=== PATIENT | male | born 1985 | race African-American/Black ===

== ENCOUNTER 2018-12-23 16:32 | Emergency (ER) | payer BC ==
[~2018-12-23] VITALS: Ht 162.6 cm; Wt 75.8 kg
[~2018-12-23 16:32] MED LIST: CIPROFLOXACIN500 M1 PO; CLOTRIMAZOLE 1%15 G1 TOP; KLOR-CON 1010 MEQ PO; LIPITOR 20 MG T20 M1 PO; NOHOMEMEDICATIONS; NORCO 5-325 TA1 EACH PO; XANAX 0.25 MG0.25 MG PO
[2018-12-23] MEDS ORDERED: IBUPROFEN 800800 M1 PO (17:01)
[2018-12-23] MEDS ORDERED: AMOXICILLIN 50500 MG PO (17:01)
[2018-12-23] MEDS ORDERED: NAPROSYN500 MG PO (18:51)
[2018-12-23 19:15] VITALS: BP 132/90
== END 2018-12-23 19:16 | disposition home or self-care (01) ==
LOC: ER 16:32
DX: R51 Headache (principal); K02.9 Dental caries, unspecified

== ENCOUNTER 2019-07-20 09:06 | Emergency (ER) | payer BC ==
[~2019-07-20] VITALS: Ht 162.6 cm; Wt 69.8 kg
[~2019-07-20 09:06] MED LIST changes: +AMOXICILLIN 50500 MG PO; +IBUPROFEN 800800 M1 PO; +NAPROSYN500 MG PO
[2019-07-20 10:50] LABS: URINE BILIRUBIN NEGATIVE (Negative); URINE BLOOD NEGATIVE (Negative); URINE CLARITY CLEAR; URINE COLOR YELLOW; URINE GLUCOSE-RANDOM* NEGATIVE (Negative); URINE KETONES NEGATIVE (Negative); URINE NITRITE-REFLEX NEGATIVE (Negative); URINE PROTEIN (DIPSTICK) NEGATIVE (Negative); URINE SPECIFIC GRAVITY <= 1.005 (1.005-1.035); URINE UROBILINOGEN 0.2 E.U./dl (0.2-1.0)
[2019-07-20 10:51] LABS: URINE LEUKOCYTES-REFLEX 2+ (Negative)
[2019-07-20 10:54] LABS: BACTERIA-REFLEX None Seen /HPF (None Seen); CRYSTALS None Seen /LPF (None Seen); SQUAMOUS None Seen /LPF (0-3); URINE RBC None Seen /HPF (0-2)
[2019-07-20 10:57] LABS: AMP/METHAMP Negative (Negative); BARBITURATES Negative (Negative); BENZODIAZEPINES Negative (Negative); COCAINE Negative (Negative); METHADONE Negative (Negative); OPIATES Negative (Negative); PCP Negative (Negative)
[2019-07-20 11:03] LABS: ABSOLUTE NEUTROPHILS 6.5 thou/uL (1.4-8.2); BASOPHILS 0.3 % (0.0-2.0); EOSINOPHILS 0.1 % (0.0-3.0); HEMATOCRIT 46.9 % (42.0-52.0); HEMOGLOBIN 15.7 gm/dL (14.0-18.0); LYMPHOCYTES 8.9 % (24.0-44.0); MCH 27.3 pg (26.0-34.0); MCHC 33.4 g/dL (28.0-37.0); MCV 81.8 fL (80.0-100.0); MONOCYTES 7.5 % (1.0-8.0); PLATELET COUNT 263 thou/uL (150-400); POLYS 83.2 % (36.0-66.0); RBC 5.74 mil/uL (4.50-6.00); RDW 14.5 % (10.5-14.5); WBC 7.8 thou/uL (4.0-11.0)
[2019-07-20 11:14] LABS: ANION GAP 8 mmol/L (7-16); BUN 7 mg/dL (7-18); CALCIUM 9.4 mg/dL (8.5-10.1); CHLORIDE 100 mmol/L (98-107); CO2 27 mmol/L (21-32); CREATININE 1.2 mg/dL (0.7-1.3); GLUCOSE 129 mg/dL (74-106); POTASSIUM 4.1 mmol/L (3.5-5.1); SODIUM 135 mmol/L (136-145)
[2019-07-20 11:24] LABS: ALBUMIN 4.2 g/dL (3.4-5.0); SGOT 28 U/L (15-37); SGPT 24 U/L (30-65); TOTAL BILIRUBIN 0.7 mg/dL (<0.1-1.0); TROPONIN-I <0.06 ng/mL (<0.06)
[2019-07-20 11:39] LABS: SALICYLATE 2.7 mg/dL (2.8-20.0)
[2019-07-20] MEDS ORDERED: ATIVAN0.5 M1 PO (11:52)
[2019-07-20] MEDS ORDERED: DOXYCYCLINE 10100 MG PO (11:52)
[2019-07-20] MEDS ORDERED: NORFLEX100 MG PO (11:52)
[2019-07-20] MEDS ORDERED: NAPROSYN500 MG PO (11:52)
[2019-07-20 13:25] VITALS: BP 133/76
--- NOTE | 2019-07-21 08:20 | EKG ---
[facility] [address] [place] [address] ELECTROCARDIOGRAM REPORT Name: ZAKIA PRICE Room [facility] [id number] Admission: 07/20/19 Attend Phys: Discharge: 07/20/19 Date of : 89 Report #: [id number] THIS REPORT FOR: cc: All Bell James A. DO Couchonnal, Luis F. 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: CALVIN : 1985 Requested By: Chencho Alexander Order Number: [id number] MD: Esteban Berkowitz Measurements Intervals [place] Rate: 103 P: 33 WA: 129 QRS: 63 QRSD: 82 T: -44 QT: 315 QTc: 413 Interpretive Statements Sinus tachycardia Nonspecific T abnormalities, lateral leads Borderline ST elevation, anterior leads Artifact in lead(s) I,aVR,aVL,V1,V3,V5,V6 and baseline wander in lead(s) II Compared to ECG 08/03/2011 20:36:48 T-wave abnormality now present Sinus rhythm no longer present ST (T wave) deviation still present Electronically Signed On 07-21-2019 8:18:58 CDT by Esteban Berkowitz [email or web address] <ELECTRONICALLY SIGNED> By: Esteban Berkowitz MD 07/21/19 0818 1113 1113 Esteban Berkowitz MD /EPI
== END 2019-07-20 13:25 | disposition home or self-care (01) ==
LOC: ER 09:06
PROVIDERS: Emergency Medicine
DX: M62.82 Rhabdomyolysis (principal); N39.0 Urinary tract infection, site not specified; F41.9 Anxiety disorder, unspecified; M62.830 Muscle spasm of back; M54.6 Pain in thoracic spine; M54.2 Cervicalgia; E78.5 Hyperlipidemia, unspecified

== ENCOUNTER 2020-11-26 12:30 | Emergency (ER) | payer OTHER ==
[~2020-11-26] VITALS: Ht 162.6 cm; Wt 68.0 kg
[~2020-11-26 12:30] MED LIST changes: +ATIVAN0.5 M1 PO; +DOXYCYCLINE 10100 MG PO; +NORFLEX100 MG PO
[2020-11-26] MEDS ORDERED: HYDROCORTISONE30 GM TOP (13:55)
== END 2020-11-26 14:10 | disposition home or self-care (01) ==
LOC: ER 12:30
DX: T78.49XA Other allergy, initial encounter (principal); Z79.1 Long term (current) use of non-steroidal anti-inflammatories (NSAID); Z79.899 Other long term (current) drug therapy; X58.XXXA Exposure to other specified factors, initial encounter

== ENCOUNTER 2021-05-05 15:12 | Emergency (ER) | payer BC ==
[~2021-05-05] VITALS: Ht 162.6 cm; Wt 72.6 kg
[~2021-05-05 15:12] MED LIST changes: +HYDROCORTISONE30 GM TOP
[2021-05-05 15:18] VITALS: BP 134/86
[2021-05-05 15:27] LABS: URINE BILIRUBIN NEGATIVE (Negative); URINE BLOOD NEGATIVE (Negative); URINE CLARITY CLEAR; URINE COLOR YELLOW; URINE GLUCOSE-RANDOM* NEGATIVE (Negative); URINE KETONES NEGATIVE (Negative); URINE LEUKOCYTES-REFLEX NEGATIVE (Negative); URINE NITRITE-REFLEX NEGATIVE (Negative); URINE PROTEIN (DIPSTICK) NEGATIVE (Negative); URINE UROBILINOGEN 0.2 E.U./dl (0.2-1.0)
[2021-05-05] MEDS ORDERED: DOXYCYCLINE 10100 MG PO (15:46)
== END 2021-05-05 16:07 | disposition home or self-care (01) ==
LOC: ER 15:12
PROVIDERS: Emergency Medicine; Nurse Practitioner
DX: A64 Unspecified sexually transmitted disease (principal)